=== PATIENT | female | born 1965 | race Caucasian/White ===

== ENCOUNTER 2017-02-16 12:01 | Day surgery (SDC) | payer OTHER ==
[~2017-02-16] VITALS: Ht 142.2 cm; Wt 54.7 kg
[2017-02-16 12:58] VITALS: Ht 142.2 cm; Wt 54.7 kg
[2017-02-16 13:57] VITALS: BP 115/60; PULSE 69; RESP 15
[2017-02-16] MEDS ORDERED: FENTAnyl 50 MCG/ML VIAL ONE (16:28)
[2017-02-16] MEDS ORDERED: MIDAZOLAM 1 MG/ML 2 ML INJ ONE ×2 (16:28→16:29)
[2017-02-16 16:59] VITALS: BP 91/66; RESP 20
--- NOTE | 2017-02-17 04:34 | GILP ---
DATE OF PROCEDURE: 02/16/2017 PROCEDURE: Colonoscopy to cecum. BRIEF HISTORY AND INDICATIONS: The patient here for colorectal cancer screening. PREMEDICATION: Monitored anesthesia care by anesthesiologist. SURGEON: Aparna Abel MD INSTRUMENT USED: Olympus colonoscope. PREPARATION: Adequate. TECHNIQUE: After informed consent, with the patient/relatives understanding the procedure, its indic ations potential risks and complications, including but not limited to: allergic reaction, bleeding, perforation, infection, missed lesions and after all pertinent questions were answered to the patie nt's satisfaction, the patient/relatives signed the witnessed informed consent. Following this, premedication was administered slowly IV push by under careful cardiovascular and re spiratory monitoring with pulse oximetry, automatic blood pressure and environmental monitoring technician. Once the sedativ e effect was achieved, the patient was placed in the left lateral decubitus position, digital rectal examination was performed. The colonoscope was then introduced and advanced under visual control th roughout all segments of the colon including: the rectum, sigmoid, descending colon, splenic flexure , transverse colon, hepatic flexure, ascending colon and finally reaching the cecum which was clearl y identified by transillumination, finger indentation and the ileocecal valve. FINDINGS: Careful examination of the mucosa of the lower gastrointestinal tract both on insertion a s well as withdrawal of the instrument disclosed the following findings: Rectal Examination: No evidence of perirectal disease, no masses. Colonic Mucosa: The colonic mucosa shows no significant abnormalities. The ileocecal valve was natali adrianna identified and appears unremarkable. The instrument was withdrawn reexamining the mucosa in de tail. No additional abnormalities are noted with exception of moderate sized internal hemorrhoids. The patient tolerated the procedure well and was transferred out of the [facility]oscopy Suite awake and in good condition to continue recovery under observation. IMPRESSION: 1. Normal colonic mucosa to cecum. 2. Moderate size internal hemorrhoids. PLAN: The patient will be followed up as an outpatient. Annual Hemoccult stool testing is recommen ded. Screening colonoscopy in 10 years is recommended. Dictated By: APARNA ABEL MS/JASMIN Conf#: [id number] DID#: [id number] CC: APARNA ABEL;*EndCC*
== END 2017-02-16 18:16 | disposition home or self-care (01) ==
LOC: GIL 12:01
PROVIDERS: ATTEND Internal Medicine Gastroenterology
DX: Z12.11 Encounter for screening for malignant neoplasm of colon (principal); K64.8 Other hemorrhoids
CPT/HCPCS: 45378; J2250; J3010; Z7610